=== PATIENT | male | born 1990 | race Caucasian/White ===

== ENCOUNTER 2017-08-09 14:04 | Emergency (ER) | payer SELFPAY ==
[2017-08-09 14:21] VITALS: TEMP 98; BMI 22.6
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
[2017-08-09] MEDS ORDERED: ACETAMINOPHEN 325 MG TABLET (FP) PO ONE (14:56)
[2017-08-09] MEDS ORDERED: ACETAMINOPHEN 325 MG TABLET (FP) ONE (15:08)
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
[2017-08-09 18:43] VITALS: BP 118/74; PULSE 85
== END 2017-08-09 18:43 | disposition home or self-care (01) ==
LOC: JER 14:04
PROC: 2W3LX1Z Immobilization of Right Lower Extremity using Splint (ICD-10-PCS; principal; 2017-08-09)
DX: S82.861A Displaced Maisonneuve's fracture of right leg, initial encounter for closed fracture (principal); S82.841A Displaced bimalleolar fracture of right lower leg, initial encounter for closed fracture; W03.XXXA Other fall on same level due to collision with another person, initial encounter; Y93.01 Activity, walking, marching and hiking; Y92.522 Railway station as the place of occurrence of the external cause; Y99.8 Other external cause status
CPT/HCPCS: 73564-TC-RT-FY; 73590-TC-RT-FY; 73610-TC-RT-FY; 73630-TC-RT-FY; 99281-25

== ENCOUNTER 2018-09-14 01:48 | Emergency (ER) | payer SELFPAY ==
[2018-09-14 03:18] VITALS: BP 110/71; PULSE 99; TEMP 98.6; BMI 22.7
--- NOTE | 2018-09-14 03:27 | PDOC ---
*Physical Exam - Vital Signs Last Vital Signs Temp Pulse Resp BP Pulse Ox 98.6 F 99 H 18 110/71 100 09/14/18 01:48 09/14/18 01:48 09/14/18 01:48 09/14/18 01:48 09/14/18 01:48 Medical Decision Making - Medical Decision Making 09/14/18 03:27 Patient seen by the advanced practice provider under my direct supervision. Ancillary testing reviewed as necessary. I agree with plan as outlined by the advanced practice provider. *DC/Admit/Observation/Transfer Diagnosis at time of Disposition: Neck pain, bilateral, Mandibular pain Head trauma Qualifiers: Encounter type: initial encounter Qualified Code(s): S09.90XA - Unspecified injury of head, initial encounter - Discharge Dispostion Condition at time of disposition: Fair - Referrals - Patient Instructions - Post Discharge Activity
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
[2018-09-14] MEDS ORDERED: ACETAMINOPHEN 325 MG TABLET (FP) PO ONE (04:02)
[2018-09-14] MEDS ORDERED: ACETAMINOPHEN 325 MG TABLET (FP) ONE (04:23)
== END 2018-09-14 06:26 | disposition home or self-care (01) ==
LOC: JER 01:48
DX: S09.8XXA Other specified injuries of head, initial encounter (principal); G44.319 Acute post-traumatic headache, not intractable; F07.81 Postconcussional syndrome; S02.2XXA Fracture of nasal bones, initial encounter for closed fracture; Y00.XXXA Assault by blunt object, initial encounter; Y93.89 Activity, other specified; Y92.414 Local residential or business street as the place of occurrence of the external cause; Y99.8 Other external cause status
CPT/HCPCS: 70450-TC; 70486-TC; 72125-TC; 99281-25

== ENCOUNTER 2020-07-26 06:29 | Emergency (ER) | payer OTHER ==
[2020-07-26 06:44] VITALS: BMI 25.0
[2020-07-26] MEDS ORDERED: ASPIRIN 81 MG CHEWABLE TABLETS PO ONE (07:24)
[2020-07-26] MEDS ORDERED: SODIUM CHLORIDE 1,000 ML IV STA (07:24)
[2020-07-26 08:08] LABS: BASO % 0.3 % (0-2.0); HEMATOCRIT 43.8 % (35.4-49); HEMOGLOBIN 15.5 GM/dL (11.7-16.9); LYMPH % 24.7 % (8-40); MCH 32.5 pg (25.7-33.7); MCHC 35.3 g/dl (32.0-35.9); MEAN CELL VOLUME 91.9 fl (80-96); MEAN PLT VOLUME 8.4 fl (7.5-11.1); MONO % 9.4 % (3.8-10.2); NEUT % 64.6 % (42.8-82.8); PLATELET COUNT 241 K/MM3 (134-434); RBC 4.77 M/mm3 (4.00-5.60); RDW 13.2 % (11.9-15.9); WHITE BLOOD COUNT 5.5 K/mm3 (4.0-10.0)
[2020-07-26] MEDS ORDERED: ASPIRIN 81 MG CHEWABLE TABLETS ONE (08:11)
[2020-07-26 08:18] LABS: INR 0.91 (0.83-1.09); PROTHROMBIN TIME (PATIENT) 11.2 SEC (9.7-13.0)
[2020-07-26 08:21] LABS: ACTIVATED PTT 27.7 SECONDS (25.2-36.5)
[2020-07-26 08:33] LABS: CHLORIDE 102 mmol/L (98-107); SODIUM 136 mmol/L (136-145)
[2020-07-26 08:35] LABS: CALCIUM 9.3 mg/dL (8.5-10.1); GLUCOSE,RANDOM 104 mg/dL (74-106)
[2020-07-26 08:36] LABS: ALBUMIN 4.6 g/dl (3.4-5.0); ANION GAP 9 MMOL/L (8-16); BLOOD UREA NITROGEN 12.8 mg/dL (7-18); CO2 26 mmol/L (21-32); MAGNESIUM 2.5 mg/dL (1.8-2.4)
[2020-07-26 08:39] LABS: CREATININE 0.9 mg/dL (0.55-1.3); SGOT/AST 140 U/L (15-37); SGPT/ALT 134 U/L (13-61)
[2020-07-26 08:41] LABS: ALK PHOS 107 U/L (45-117); BILIRUBIN,TOTAL 0.7 mg/dL (0.2-1); TOT PROT 8.5 g/dl (6.4-8.2)
[2020-07-26 09:01] LABS: EPI CELLS 6 /uL (0-25.1); HYALINE CASTS 2 /uL (0-3.1); PH,URINE 5.5 (5.0-8.0); URINE APPEARANCE CLEAR; URINE BACTERIA 13 /uL (0-1359); URINE BILIRUBIN NEGATIVE (NEGATIVE); URINE COLOR DK YELLOW; URINE GLUCOSE (UA) NEGATIVE (NEGATIVE); URINE KETONE TRACE (NEGATIVE); URINE LEUK ESTERASE NEGATIVE (NEGATIVE); URINE NITRITE NEGATIVE (NEGATIVE); URINE PROTEIN 1+ (NEGATIVE); URINE RBC 4 /uL (0-23.9); URINE UROBILINOGEN 0.2 mg/dL (0.2-1.0); URINE WBC 7 /uL (0-25.8)
[2020-07-26 09:07] LABS: METHADONE, UR NEGATIVE ng/ml (CUTOFF=300); OPIATES, URI NEGATIVE ng/ml (CUTOFF=300); URINE AMPHETAMINES NEGATIVE ng/ml (CUTOFF=500); URINE BARBITURATES NEGATIVE ng/ml (CUTOFF=200); URINE BENZODIAZEPINES NEGATIVE ng/ml (CUTOFF=200)
[2020-07-26 09:08] LABS: COCAINE, UR POSITIVE ng/ml (CUTOFF=300); PHENCYCLIDINE,URINE NEGATIVE ng/ml (CUTOFF=25)
[2020-07-26 10:37] VITALS: BP 124/88; PULSE 89; TEMP 97.9
== END 2020-07-26 10:31 | disposition home or self-care (01) ==
LOC: JER 06:29
PROC: 3E0337Z Introduction of Electrolytic and Water Balance Substance into Peripheral Vein, Percutaneous Approach (ICD-10-PCS; principal; 2020-07-26)
DX: R00.2 Palpitations (principal)
CPT/HCPCS: 36415; 71046-TC-FY; 80053; 80307; 81003; 82550; 82553; 83735; 84484; 85025; 85610; 85730; 93005; 93010; 99284-25

== ENCOUNTER 2022-01-12 18:08 | Emergency (ER) | payer OTHER ==
[2022-01-12 18:17] VITALS: BP 121/78; PULSE 93; RESP 18; TEMP 98; BMI 26.6
[2022-01-12] MEDS ORDERED: IBUPROFEN 600 MG TABLET (FP) PO ONE ×2 (20:50→21:29)
[2022-01-12] MEDS ORDERED: AMOX TR/POT CLAV 875MG/125MG TABLETS (FP) PO ONE (20:50)
[2022-01-12] MEDS ORDERED: LACTULOSE 20 GM/30 ML UDC (FOR ORAL USE ONLY) PO ONE (20:51)
[2022-01-12] MEDS ORDERED: BACITRACIN 15 GM TUBE TOPICAL OINTMENT TP ONE (21:01)
[2022-01-12] MEDS ORDERED: CLINDAMYCIN HCL 150 MG CAPSULE (FP) PO ONE (21:15)
[2022-01-12] MEDS ORDERED: CLINDAMYCIN HCL 150 MG CAPSULE (FP) ONE (21:29)
[2022-01-12] MEDS ORDERED: LACTULOSE 20 GM/30 ML UDC (FOR ORAL USE ONLY) ONE (21:30)
[2022-01-12] MEDS ORDERED: BACITRACIN 15 GM TUBE TOPICAL OINTMENT ONE (21:32)
== END 2022-01-12 22:05 | disposition home or self-care (01) ==
LOC: JER 18:08
DX: L03.031 Cellulitis of right toe (principal); R10.32 Left lower quadrant pain
CPT/HCPCS: 99283-25